=== PATIENT | male | born 1990 | race Caucasian/White ===

== ENCOUNTER 2022-06-12 15:49 | Inpatient (IN) | payer MEDICAID ==
[~2022-06-12] VITALS: Ht 175.3 cm; Wt 103.4 kg
[2022-06-12] MEDS ORDERED: SODIUM CHLORIDE 0.9% 1,000 ML IV ONE (16:30)
[2022-06-12] MEDS ORDERED: LORAZEPAM 2MG/ML CPJ IV ONE ×2 (16:30→19:30)
[2022-06-12] MEDS ORDERED: LORAZEPAM 2MG/ML CPJ IV NR (19:30)
[2022-06-12 20:23] LABS: BASOPHILS % 1.1 % (0.0-2.0); EOSINOPHILS % 0.1 % (0.0-5.0); HEMATOCRIT. 46.2 % (42.0-52.0); HEMOGLOBIN. 16.5 g/dL (14.0-18.0); LYMPHOCYTES % 36.9 % (20.0-50.0); MEAN CORPUSCULAR HEMOGLOBIN 34.2 pg (28.0-32.0); MEAN CORPUSCULAR VOLUME 95.8 fL (80.0-94.0); MEAN PLATELET VOLUME 7.7 fl (7.4-10.4); NEUTROPHILS % 54.9 % (40.0-76.0); PLATELET 381 x1000/uL (130-400); RED BLOOD CELL COUNT 4.82 mill/uL (4.7-6.1); RED CELL DISTRIBUTION WIDTH 15.3 % (11.6-14.6)
[2022-06-12 20:25] LABS: CHLORIDE 101 mEq/L (98-107)
[2022-06-12 20:36] LABS: ETHANOL BLOOD 258 mg/dL
[2022-06-13] MEDS ORDERED: ONDANSETRON HCL 4MG/2ML INJ IV PRN (09:45)
[2022-06-13] MEDS ORDERED: FOLIC ACID 1 MG, THIAMINE HCL 100 MG, MVI, ADULT NO.1 10 ML in DEXTROSE 5% WATER 1,000 ML IV SCH ×4 (10:30)
[2022-06-13 12:00] VITALS: BP 126/77
[2022-06-13 12:47] VITALS: BP 126/77
[2022-06-13] MEDS: ACETAMINOPHEN 325MG TABLET PO PRN ×2 (13:41→17:32)
[2022-06-13] MEDS: CHLORDIAZEPOXIDE 25MG CAPSULE PO SCH ×2 (13:41→21:42)
[2022-06-13] MEDS: LEVETIRACETAM 500MG TABLET PO SCH ×2 (13:52→20:21)
[2022-06-13 16:00] VITALS: BP 130/90
[2022-06-13 20:00] VITALS: BP 144/91
[2022-06-13] MEDS: LORAZEPAM 2MG/ML CPJ IV PRN (20:22)
[2022-06-14] VITALS: BP 121/86
[2022-06-14 04:00] VITALS: BP 124/86
[2022-06-14] MEDS: CHLORDIAZEPOXIDE 25MG CAPSULE PO SCH ×3 (05:08→21:24)
[2022-06-14] MEDS: LORAZEPAM 2MG/ML CPJ IV PRN ×3 (05:12→22:49)
[2022-06-14 05:54] LABS: CHLORIDE 99 mEq/L (98-107)
[2022-06-14 06:01] LABS: PHOSPHORUS 4.7 mg/dL (2.5-4.9)
[2022-06-14 08:12] VITALS: BP 128/86
[2022-06-14] MEDS: LEVETIRACETAM 500MG TABLET PO SCH ×2 (09:00→21:24)
[2022-06-14] MEDS: ACETAMINOPHEN 325MG TABLET PO PRN ×2 (09:07→21:24)
[2022-06-14 11:21] LABS: BASOPHILS % 0.9 % (0.0-2.0); EOSINOPHILS % 1.5 % (0.0-5.0); HEMATOCRIT. 43.6 % (42.0-52.0); HEMOGLOBIN. 15.2 g/dL (14.0-18.0); MEAN CORPUSCULAR HEMOGLOBIN 34.1 pg (28.0-32.0); MONOCYTES % 8.2 % (2.0-8.0); NEUTROPHILS % 64.4 % (40.0-76.0); PLATELET 291 x1000/uL (130-400); RED BLOOD CELL COUNT 4.45 mill/uL (4.7-6.1); RED CELL DISTRIBUTION WIDTH 15.4 % (11.6-14.6)
[2022-06-14 12:36] VITALS: BP 126/89
[2022-06-14] MEDS: PIPERACILLIN/TAZOBACTAM 3.375 G in DEXTROSE 5% WATER 50 ML IV SCH ×2 (15:13→21:24)
[2022-06-14] MEDS: POTASSIUM CHLORIDE 20MEQ TABLET SR PO SCH (15:13)
[2022-06-14 15:47] LABS: CLARITY URINE CLEAR (CLEAR); COLOR URINE ORANGE (YELLOW); KETONES URINE TRACE (NEGATIVE); LEUKOCYTE ESTERASE URINE TRACE (NEGATIVE); NITRITE URINE NEGATIVE (NEGATIVE); OCCULT BLOOD URINE NEGATIVE (NEGATIVE); PH URINE 6.5 (4.5-8.0); PROTEIN URINE NEGATIVE (NEGATIVE); SPECIFIC GRAVITY URINE 1.023 (1.005-1.030)
[2022-06-14 16:00] VITALS: BP 126/93
[2022-06-14 20:00] VITALS: BP 121/87
[2022-06-15] VITALS (7 sets, daily range): BP systolic 121–139; BP diastolic 54–98
[2022-06-15] MEDS: CHLORDIAZEPOXIDE 25MG CAPSULE PO SCH ×3 (05:50→21:37)
[2022-06-15] MEDS: PIPERACILLIN/TAZOBACTAM 3.375 G in DEXTROSE 5% WATER 50 ML IV SCH ×3 (05:50→21:36)
[2022-06-15 06:13] LABS: BASOPHILS % 0.8 % (0.0-2.0); EOSINOPHILS % 2.9 % (0.0-5.0); HEMATOCRIT. 43.8 % (42.0-52.0); HEMOGLOBIN. 15.3 g/dL (14.0-18.0); LYMPHOCYTES % 26.5 % (20.0-50.0); MEAN CORPUSCULAR VOLUME 97.4 fL (80.0-94.0); MEAN PLATELET VOLUME 8.9 fl (7.4-10.4); MONOCYTES % 6.4 % (2.0-8.0); NEUTROPHILS % 63.4 % (40.0-76.0); PLATELET 278 x1000/uL (130-400); RED CELL DISTRIBUTION WIDTH 15.2 % (11.6-14.6)
[2022-06-15 06:28] LABS: CHLORIDE 99 mEq/L (98-107)
[2022-06-15] MEDS: LEVETIRACETAM 500MG TABLET PO SCH ×2 (10:08→21:37)
[2022-06-15] MEDS: POTASSIUM CHLORIDE 20MEQ TABLET SR PO SCH (10:08)
[2022-06-15] MEDS ORDERED: THIA100T88 MT (15:43)
[2022-06-15] MEDS: LORAZEPAM 2MG/ML CPJ IV PRN (21:37)
[2022-06-16] VITALS: BP 118/68
[2022-06-16 04:00] VITALS: BP 116/76
[2022-06-16] MEDS: CHLORDIAZEPOXIDE 25MG CAPSULE PO SCH (06:52)
[2022-06-16] MEDS: PIPERACILLIN/TAZOBACTAM 3.375 G in DEXTROSE 5% WATER 50 ML IV SCH (06:52)
[2022-06-16 08:00] VITALS: BP 131/80
[2022-06-16 08:25] VITALS: BP 131/80
[2022-06-16] MEDS: POTASSIUM CHLORIDE 20MEQ TABLET SR PO SCH (08:36)
[2022-06-16] MEDS: LEVETIRACETAM 500MG TABLET PO SCH (08:36)
[2022-06-16 09:40] VITALS: BP 131/80
[2022-06-16 12:00] VITALS: BP 139/84
== END 2022-06-16 12:53 | disposition home or self-care (01) | DRG 53 ==
LOC: ER 15:49 → MICUSO 23:14 → EDBEDREQTM 23:19 → EDBEDREQ 23:19 → 6WST 06-13 11:33
PROVIDERS: ADMIT Internal Medicine; ATTEND Internal Medicine
DX: G40.89 Other seizures (principal); J96.00 Acute respiratory failure, unspecified whether with hypoxia or hypercapnia; G93.41 Metabolic encephalopathy; F10.229 Alcohol dependence with intoxication, unspecified; F10.239 Alcohol dependence with withdrawal, unspecified; E87.6 Hypokalemia; R74.01 Elevation of levels of liver transaminase levels; Z71.41 Alcohol abuse counseling and surveillance of alcoholic
CPT/HCPCS: 36415; 71045; 80048; 80053; 80320; 81003; 83735; 84100; 85025; 93005; 99291; J2060; J2543; J3411; J3490; J7030; J7060; J7070; G0480

== ENCOUNTER 2023-05-30 23:17 | Inpatient (IN) | payer MEDICAID ==
[~2023-05-30] VITALS: Ht 175.3 cm; Wt 94.3 kg
[~2023-05-30 23:17] MED LIST: THIA100T88 MT
[2023-05-30 23:54] LABS: BASOPHILS % 0.9 % (0.0-2.0); EOSINOPHILS % 0.6 % (0.0-5.0); HEMATOCRIT. 35.5 % (42.0-52.0); HEMOGLOBIN. 12.1 g/dL (14.0-18.0); LYMPHOCYTES % 31.2 % (20.0-50.0); MEAN CORPUSCULAR HEMOGLOBIN 33.5 pg (28.0-32.0); MEAN CORPUSCULAR VOLUME 98.6 fL (80.0-94.0); MEAN PLATELET VOLUME 7.5 fl (7.4-10.4); MONOCYTES % 5.7 % (2.0-8.0); NEUTROPHILS % 61.6 % (40.0-76.0); PLATELET 154 x1000/uL (130-400); RED CELL DISTRIBUTION WIDTH 13.5 % (11.6-14.6); WHITE BLOOD COUNT 5.3 x1000/uL (4.5-11.0)
[2023-05-31] LABS: CHLORIDE 110 mEq/L (98-107); INDEX HEMOLYSI 1 (1-3); INDEX ICTERIC 2 (1-4); INDEX LIPEMIC 1 (1-3); POTASSIUM 3.2 mEq/L (3.5-5.1); SODIUM 143 mEq/L (136-145)
[2023-05-31 00:03] LABS: INR 1.4; PROTHROMBIN TIME 14.7 sec (9.6-11.0)
[2023-05-31 00:12] LABS: ALANINE AMINOTRANSFERASE 78 IU/L (13-61); ALBUMIN 2.8 g/dL (3.4-5.0); ASPARTATE AMINOTRANSFERASE 223 IU/L (15-37); BILIRUBIN TOTAL 2.2 mg/dL (0.1-1.0); CALCIUM 7.8 mg/dL (8.5-10.1); CARBON DIOXIDE 22 mEq/L (21-32); CREATININE 0.7 mg/dL (0.6-1.3); ETHANOL BLOOD 297 mg/dL (<10); GLUCOSE 115 mg/dL (70-105); PROTEIN TOTAL 7.1 g/dL (6.0-8.3); TROPONIN I HIGH SENSITIVITY 18 ng/L (<78); UREA NITROGEN BLOOD 1 mg/dL (7-21)
[2023-05-31] MEDS ORDERED: SODIUM CHL 0.9% + KCL 20MEQ/L 1,000 ML IV SCH (00:15)
[2023-05-31] MEDS ORDERED: FAMOTIDINE 20MG/2ML VIAL IV NR (00:15)
[2023-05-31] MEDS ORDERED: LORAZEPAM 1MG TABLET PO ONE (02:15)
[2023-05-31] MEDS ORDERED: MORPHINE SULFATE 4 MG/ML CPJ (NOT FOR IM USE) IV ONE (02:30)
[2023-05-31 04:00] VITALS: BP 118/80; PULSE 90; RESP 18; TEMP 96.9
[2023-05-31] MEDS ORDERED: ACETAMINOPHEN 325MG TABLET PO PRN (04:45)
[2023-05-31] MEDS ORDERED: ONDANSETRON HCL 4MG/2ML INJ IV PRN (04:45)
[2023-05-31] MEDS ORDERED: NALOXONE HCL 0.4MG/ML VIAL IV PRN (05:00)
[2023-05-31 08:00] VITALS: BP 122/77; PULSE 93; RESP 18; TEMP 97.6
[2023-05-31] MEDS: SODIUM CHLORIDE 0.9% 1,000 ML IV SCH (08:20)
[2023-05-31] MEDS: PANTOPRAZOLE SODIUM 40 MG/VIAL IV SCH (08:20)
[2023-05-31 12:00] VITALS: BP 114/85; PULSE 96; RESP 18; TEMP 97
[2023-05-31] MEDS: HYDROCODONE/ACETAMINOPHEN 5/325MG TABLET PO PRN ×2 (14:36→20:58)
[2023-05-31 16:00] VITALS: BP 112/72; PULSE 62; RESP 18; TEMP 98
[2023-05-31 20:00] VITALS: BP 114/85; PULSE 69; RESP 20; TEMP 97.8
[2023-06-01] VITALS: BP 117/78; PULSE 82; RESP 16; TEMP 97.1
[2023-06-01] MEDS: HYDROCODONE/ACETAMINOPHEN 5/325MG TABLET PO PRN ×2 (01:07→09:08)
[2023-06-01] MEDS: LORAZEPAM 2MG/ML CPJ IV PRN ×2 (01:14→09:58)
[2023-06-01] MEDS: SODIUM CHLORIDE 0.9% 1,000 ML IV SCH (01:19)
[2023-06-01 04:00] VITALS: BP 135/83; PULSE 106; RESP 18; TEMP 97.1
[2023-06-01 07:18] LABS: CHLORIDE 111 mEq/L (98-107); INDEX HEMOLYSI 1 (1-3); INDEX ICTERIC 2 (1-4); INDEX LIPEMIC 1 (1-3); POTASSIUM 3.4 mEq/L (3.5-5.1); SODIUM 142 mEq/L (136-145)
[2023-06-01 07:29] LABS: CALCIUM 6.9 mg/dL (8.5-10.1); CARBON DIOXIDE 23 mEq/L (21-32); CREATININE 0.7 mg/dL (0.6-1.3); GLUCOSE 70 mg/dL (70-105); UREA NITROGEN BLOOD 2 mg/dL (7-21)
[2023-06-01 08:00] VITALS: BP 120/75; PULSE 94; RESP 18; TEMP 97.6
[2023-06-01] MEDS ORDERED: POTASSIUM CHLORIDE 20MEQ TABLET SR PO NR (08:30)
[2023-06-01] MEDS: PANTOPRAZOLE SODIUM 40 MG/VIAL IV SCH (08:45)
[2023-06-01 12:00] VITALS: BP 125/78; PULSE 98; RESP 19; TEMP 97.3
[2023-06-01 16:11] VITALS: BP 127/78; PULSE 98; TEMP 97.3; O2SAT 99
[2023-06-02] MEDS ORDERED: FAMOTIDINE 20MG/2ML VIAL IV SCH (09:00)
== END 2023-06-01 17:00 | disposition home or self-care (01) | DRG 282 ==
LOC: ER 23:17 → 8WST 05-31 02:33
PROVIDERS: ADMIT Internal Medicine; ATTEND Internal Medicine
DX: K85.90 Acute pancreatitis without necrosis or infection, unspecified (principal); E44.0 Moderate protein-calorie malnutrition; K74.60 Unspecified cirrhosis of liver; D64.9 Anemia, unspecified; E87.6 Hypokalemia; I10 Essential (primary) hypertension; J45.909 Unspecified asthma, uncomplicated; R74.01 Elevation of levels of liver transaminase levels; F10.129 Alcohol abuse with intoxication, unspecified; Z68.30 Body mass index [BMI] 30.0-30.9, adult
CPT/HCPCS: 36415; 74176; 80048; 80053; 80320; 84484; 85025; 93005; 99285; C9113; J2060; J2270; J3480; J3490; J7030; G0480

== ENCOUNTER 2023-07-06 17:12 | Inpatient (IN) | payer MEDICAID ==
[~2023-07-06] VITALS: Ht 175.3 cm; Wt 90.7 kg
[2023-07-06 19:35] LABS: BASOPHILS % 0.8 % (0.0-2.0); EOSINOPHILS % 0.8 % (0.0-5.0); HEMATOCRIT. 31.9 % (42.0-52.0); HEMOGLOBIN. 10.8 g/dL (14.0-18.0); LYMPHOCYTES % 12.4 % (20.0-50.0); MEAN CORPUSCULAR HEMOGLOBIN 32.7 pg (28.0-32.0); MEAN CORPUSCULAR HGB CONC 33.9 g/dL (31.0-37.0); MEAN CORPUSCULAR VOLUME 96.3 fL (80.0-94.0); MEAN PLATELET VOLUME 8.6 fl (7.4-10.4); PLATELET 222 x1000/uL (130-400); RED BLOOD CELL COUNT 3.31 mill/uL (4.7-6.1); WHITE BLOOD COUNT 12.5 x1000/uL (4.5-11.0)
[2023-07-06 19:37] LABS: CHLORIDE 105 mEq/L (98-107); INDEX HEMOLYSI 1 (1-3); INDEX ICTERIC 3 (1-4); INDEX LIPEMIC 1 (1-3); POTASSIUM 3.7 mEq/L (3.5-5.1); SODIUM 138 mEq/L (136-145)
[2023-07-06 19:49] LABS: ALANINE AMINOTRANSFERASE 134 IU/L (13-61); ALBUMIN 2.6 g/dL (3.4-5.0); ASPARTATE AMINOTRANSFERASE 206 IU/L (15-37); BILIRUBIN TOTAL 4.6 mg/dL (0.1-1.0); CALCIUM 7.8 mg/dL (8.5-10.1); CARBON DIOXIDE 25 mEq/L (21-32); CREATININE 0.7 mg/dL (0.6-1.3); GLUCOSE 112 mg/dL (70-105); PROTEIN TOTAL 7.7 g/dL (6.0-8.3); TROPONIN I HIGH SENSITIVITY 8 ng/L (<78); UREA NITROGEN BLOOD 4 mg/dL (7-21)
[2023-07-06 19:58] LABS: ETHANOL BLOOD 326 mg/dL (<10)
[2023-07-06] MEDS ORDERED: FAMOTIDINE 20MG/2ML VIAL IV ONE ×2 (21:00→22:43)
[2023-07-06 22:19] LABS: TROPONIN I HIGH SENSITIVITY 8 ng/L (<78)
[2023-07-07] MEDS ORDERED: IPRATROPIUM/ALBUTEROL 0.5-3(2.5)MG/3ML NEB HHN PRN (01:15)
[2023-07-07] MEDS ORDERED: ONDANSETRON HCL 4MG/2ML INJ IV PRN (01:15)
[2023-07-07] MEDS ORDERED: MAGNESIUM/ALUMINUM HYDROXIDE/SIMETHICONE 30ML UDC PO PRN (01:15)
[2023-07-07] MEDS ORDERED: DOCUSATE SODIUM 100MG CAPSULE PO PRN (01:15)
[2023-07-07] MEDS ORDERED: GUAIFENESIN 200MG/10ML SUGAR FREE UDC PO PRN (01:15)
[2023-07-07] MEDS ORDERED: ACETAMINOPHEN 325MG TABLET PO PRN (01:15)
[2023-07-07] MEDS ORDERED: CLONIDINE 0.1MG TABLET PO PRN (01:15)
[2023-07-07] MEDS ORDERED: MULT-1318 PO (02:37)
[2023-07-07] MEDS ORDERED: FURO40TA5 PO (02:37)
[2023-07-07] MEDS ORDERED: PRED10TA PO (02:37)
[2023-07-07] MEDS ORDERED: FOLI-43 PO (02:37)
[2023-07-07] MEDS ORDERED: GABA-532 PO (02:37)
[2023-07-07] MEDS ORDERED: LEVE500T19 PO (02:37)
[2023-07-07] MEDS ORDERED: ACET325T52 PO (02:37)
[2023-07-07] MEDS ORDERED: LIDO28.35 TP (02:37)
[2023-07-07] MEDS ORDERED: LACT10SO3 PO (02:37)
[2023-07-07] MEDS ORDERED: SPIR25TA6 PO (02:37)
[2023-07-07] MEDS ORDERED: HYDR-3735 PO (02:37)
[2023-07-07] MEDS ORDERED: PANT40TA51 PO (02:37)
[2023-07-07] MEDS ORDERED: RIFA550T PO (02:37)
[2023-07-07] MEDS: ACETAMINOPHEN 325MG TABLET PO PRN (03:29)
[2023-07-07 03:30] VITALS: BP 124/78; PULSE 99; RESP 17; TEMP 98.6
[2023-07-07] MEDS ORDERED: [UNRECOGNIZED DRUG - REMARK] IV ONE ×4 (03:30)
[2023-07-07 03:48] LABS: INDEX HEMOLYSI 1 (1-3)
[2023-07-07 03:51] LABS: AMMONIA 84 uMol/L (<32)
[2023-07-07] MEDS ORDERED: MVI, ADULT NO.1 10 ML, THIAMINE HCL 100 MG, FOLIC ACID 1 MG in DEXT 5%/0.45% NACL 1000M... IV ONE ×4 (03:58)
[2023-07-07 04:30] LABS: FOLIC ACID (FOLATE) SERUM 6.5 ng/mL (>5.38)
[2023-07-07] MEDS: LORAZEPAM 2MG/ML CPJ IV PRN ×3 (04:38→17:45)
[2023-07-07 06:22] LABS: BASOPHILS % 0.5 % (0.0-2.0); EOSINOPHILS % 0.9 % (0.0-5.0); HEMATOCRIT. 26.8 % (42.0-52.0); HEMOGLOBIN. 9.4 g/dL (14.0-18.0); LYMPHOCYTES % 13.5 % (20.0-50.0); MEAN CORPUSCULAR HEMOGLOBIN 33.3 pg (28.0-32.0); MEAN CORPUSCULAR VOLUME 95.3 fL (80.0-94.0); MEAN PLATELET VOLUME 8.6 fl (7.4-10.4); NEUTROPHILS % 77.1 % (40.0-76.0); PLATELET 197 x1000/uL (130-400); RED BLOOD CELL COUNT 2.81 mill/uL (4.7-6.1); RED CELL DISTRIBUTION WIDTH 17.4 % (11.6-14.6); WHITE BLOOD COUNT 9.8 x1000/uL (4.5-11.0)
[2023-07-07 06:27] LABS: INR 1.2; PARTIAL THROMBOPLASTIN TIME 33.8 sec (23.4-31.0); PROTHROMBIN TIME 13.1 sec (9.6-11.0)
[2023-07-07 06:39] LABS: CHLORIDE 107 mEq/L (98-107); INDEX HEMOLYSI 1 (1-3); INDEX ICTERIC 2 (1-4); INDEX LIPEMIC 1 (1-3); POTASSIUM 3.7 mEq/L (3.5-5.1); SODIUM 140 mEq/L (136-145)
[2023-07-07 06:54] LABS: ALANINE AMINOTRANSFERASE 110 IU/L (13-61); ALBUMIN 2.2 g/dL (3.4-5.0); ASPARTATE AMINOTRANSFERASE 185 IU/L (15-37); BILIRUBIN DIRECT 2.9 mg/dL (0.0-0.2); BILIRUBIN TOTAL 3.9 mg/dL (0.1-1.0); CALCIUM 7.3 mg/dL (8.5-10.1); CARBON DIOXIDE 27 mEq/L (21-32); CHOLESTEROL 164 mg/dL (<200); CREATININE 0.6 mg/dL (0.6-1.3); GLUCOSE 92 mg/dL (70-105); HDL CHOLESTEROL 27 mg/dL (40-59); LDL CHOLESTEROL 132 mg/dL (5-100); PROTEIN TOTAL 6.6 g/dL (6.0-8.3); TRIGLYCERIDE 123 mg/dL (0-150); TROPONIN I HIGH SENSITIVITY 10 ng/L (<78); UREA NITROGEN BLOOD 5 mg/dL (7-21)
[2023-07-07] MEDS: LACTULOSE 20G/30ML UDC PO SCH ×3 (07:01→21:45)
[2023-07-07 08:00] VITALS: PULSE 100; RESP 14; TEMP 99
[2023-07-07 08:09] LABS: CLARITY URINE CLEAR (CLEAR); COLOR URINE DARK YELLOW (YELLOW); GLUCOSE URINE NEGATIVE (NEGATIVE); KETONES URINE NEGATIVE (NEGATIVE); LEUKOCYTE ESTERASE URINE NEGATIVE (NEGATIVE); NITRITE URINE NEGATIVE (NEGATIVE); OCCULT BLOOD URINE NEGATIVE (NEGATIVE); PROTEIN URINE NEGATIVE (NEGATIVE); SPECIFIC GRAVITY URINE 1.017 (1.005-1.030)
[2023-07-07] MEDS ORDERED: PANTOPRAZOLE SODIUM 40 MG/VIAL IV SCH (09:00)
[2023-07-07] MEDS ORDERED: FUROSEMIDE 40MG/4ML VIAL IVP SCH (09:00)
[2023-07-07 09:29] LABS: *AMPHETAMINES SCREEN URINE NEGATIVE (NEGATIVE); *BARBITURATES SCREEN URINE NEGATIVE (NEGATIVE); *BENZODIAZEPINES SCREEN URINE NEGATIVE (NEGATIVE); *COCAINE SCREEN URINE NEGATIVE (NEGATIVE); CANNABINOID URINE SCREEN NEGATIVE (NEGATIVE); ECSTASY MDMA SCREEN URINE NEGATIVE (NEGATIVE); METHADONE URINE SCREEN NEGATIVE (NEGATIVE); OPIATES URINE SCREEN NEGATIVE (NEGATIVE); PHENCYCLIDINE URINE SCREEN NEGATIVE (NEGATIVE)
[2023-07-07 10:01] LABS: INDEX HEMOLYSI 2 (1-3)
[2023-07-07 10:10] LABS: LACTATE DEHYDROGENASE 416 IU/L (100-240); NT PRO B-TYPE NATRIURETIC PEP 315 pg/mL (5-125)
[2023-07-07] MEDS: SPIRONOLACTONE 25MG TABLET PO SCH ×2 (11:32→17:45)
[2023-07-07] MEDS: RIFAXIMIN 550 MG TABLET PO SCH ×2 (11:32→17:44)
[2023-07-07] MEDS: LEVETIRACETAM 500MG TABLET PO SCH ×2 (11:33→17:45)
[2023-07-07] MEDS: FUROSEMIDE 40MG TABLET PO SCH ×2 (11:33→17:45)
[2023-07-07 12:00] VITALS: PULSE 115; RESP 16; TEMP 98.6
[2023-07-07 16:00] VITALS: PULSE 107; RESP 15; TEMP 99
[2023-07-07 20:00] VITALS: BP 122/78; PULSE 102; RESP 19; TEMP 99
[2023-07-07 21:45] LABS: TROPONIN I HIGH SENSITIVITY 8 ng/L (<78)
[2023-07-07] MEDS: CHLORDIAZEPOXIDE 25MG CAPSULE PO SCH (21:45)
[2023-07-07] MEDS: PANTOPRAZOLE SODIUM 40 MG/VIAL IV SCH (21:45)
[2023-07-08] VITALS: BP 126/74; PULSE 103; RESP 16; TEMP 101.1
[2023-07-08] MEDS: LORAZEPAM 2MG/ML CPJ IV PRN ×3 (01:08→20:52)
[2023-07-08 04:00] VITALS: BP 110/66; PULSE 80; RESP 14; TEMP 97.9
[2023-07-08 04:54] LABS: INDEX HEMOLYSI 1 (1-3)
[2023-07-08 04:56] LABS: AMMONIA 54 uMol/L (<32)
[2023-07-08] MEDS: CHLORDIAZEPOXIDE 25MG CAPSULE PO SCH ×3 (05:39→20:52)
[2023-07-08] MEDS: LACTULOSE 20G/30ML UDC PO SCH ×3 (05:39→20:52)
[2023-07-08 06:56] LABS: BASOPHILS % 0.4 % (0.0-2.0); EOSINOPHILS % 0.5 % (0.0-5.0); HEMATOCRIT. 29.3 % (42.0-52.0); HEMOGLOBIN. 10.1 g/dL (14.0-18.0); LYMPHOCYTES % 11.4 % (20.0-50.0); MEAN CORPUSCULAR HEMOGLOBIN 32.7 pg (28.0-32.0); MEAN CORPUSCULAR HGB CONC 34.3 g/dL (31.0-37.0); MEAN CORPUSCULAR VOLUME 95.2 fL (80.0-94.0); MEAN PLATELET VOLUME 9.9 fl (7.4-10.4); MONOCYTES % 10.6 % (2.0-8.0); NEUTROPHILS % 77.1 % (40.0-76.0); PLATELET 187 x1000/uL (130-400); RED BLOOD CELL COUNT 3.08 mill/uL (4.7-6.1); RED CELL DISTRIBUTION WIDTH 17.8 % (11.6-14.6); WHITE BLOOD COUNT 12.2 x1000/uL (4.5-11.0)
[2023-07-08 06:59] LABS: INR 1.2; PROTHROMBIN TIME 13.1 sec (9.6-11.0)
[2023-07-08 07:46] LABS: CHLORIDE 102 mEq/L (98-107); INDEX HEMOLYSI 1 (1-3); INDEX ICTERIC 3 (1-4); INDEX LIPEMIC 1 (1-3); POTASSIUM 3.4 mEq/L (3.5-5.1); SODIUM 136 mEq/L (136-145)
[2023-07-08 08:00] VITALS: BP 110/66; PULSE 94; RESP 22; TEMP 98
[2023-07-08 08:09] LABS: ALANINE AMINOTRANSFERASE 107 IU/L (13-61); ALBUMIN 2.5 g/dL (3.4-5.0); ASPARTATE AMINOTRANSFERASE 180 IU/L (15-37); BILIRUBIN DIRECT 3.7 mg/dL (0.0-0.2); BILIRUBIN TOTAL 5.4 mg/dL (0.1-1.0); CALCIUM 8.3 mg/dL (8.5-10.1); CREATININE 0.9 mg/dL (0.6-1.3); GLUCOSE 75 mg/dL (70-105); IRON 78 ug/dL (50-175); TOTAL IRON BINDING CAPACITY 184 ug/dL (250-450); UREA NITROGEN BLOOD 5 mg/dL (7-21)
[2023-07-08] MEDS ORDERED: POTASSIUM CHLORIDE 20MEQ TABLET SR PO NR (08:30)
[2023-07-08] MEDS: PANTOPRAZOLE SODIUM 40 MG/VIAL IV SCH ×2 (09:20→20:52)
[2023-07-08] MEDS: CEFTRIAXONE 2 G in DEXTROSE 5% WATER 50 ML IV SCH (09:20)
[2023-07-08] MEDS: SPIRONOLACTONE 25MG TABLET PO SCH ×2 (09:21→16:10)
[2023-07-08] MEDS: FOLIC ACID 1MG TABLET PO SCH (09:21)
[2023-07-08] MEDS: ACETAMINOPHEN 325MG TABLET PO PRN ×2 (09:21→19:11)
[2023-07-08] MEDS: FUROSEMIDE 40MG TABLET PO SCH ×2 (09:21→16:08)
[2023-07-08] MEDS: LEVETIRACETAM 500MG TABLET PO SCH ×2 (09:21→16:08)
[2023-07-08] MEDS: THIAMINE HCL 100MG TABLET PO SCH (09:22)
[2023-07-08] MEDS: RIFAXIMIN 550 MG TABLET PO SCH ×2 (09:22→16:08)
[2023-07-08 12:00] VITALS: BP 110/66; PULSE 94; RESP 14; TEMP 98.6
[2023-07-08 12:33] LABS: CARBON DIOXIDE 27 mEq/L (21-32)
[2023-07-08 16:00] VITALS: BP 110/66; PULSE 113; RESP 24; TEMP 99
[2023-07-08 16:39] LABS: FERRITIN 176 ng/mL (22-322)
[2023-07-08 16:51] LABS: HEPATITIS B SURFACE ANTIGEN NEGATIVE
[2023-07-08 16:59] LABS: HEPATITIS C VIR.AB 0.08 INDEXVAL (0.00-0.80)
[2023-07-08 17:00] LABS: HEPATITIS B CORE AB IGM NEGATIVE
[2023-07-08 17:20] LABS: HEPATITIS A AB IGM NEGATIVE (NEGATIVE)
[2023-07-08 20:00] VITALS: BP 117/76; PULSE 108; RESP 23; TEMP 98.7
[2023-07-09] VITALS: BP 120/78; PULSE 114; RESP 20; TEMP 98.7
[2023-07-09] MEDS: LORAZEPAM 2MG/ML CPJ IV PRN ×5 (02:53→22:07)
[2023-07-09 04:00] VITALS: BP 119/73; PULSE 94; RESP 17; TEMP 98.7
[2023-07-09] MEDS: LACTULOSE 20G/30ML UDC PO SCH ×3 (05:57→22:07)
[2023-07-09] MEDS: CHLORDIAZEPOXIDE 25MG CAPSULE PO SCH (05:58)
[2023-07-09 06:27] LABS: BASOPHILS % 0.7 % (0.0-2.0); EOSINOPHILS % 1.1 % (0.0-5.0); HEMATOCRIT. 30.3 % (42.0-52.0); HEMOGLOBIN. 10.4 g/dL (14.0-18.0); LYMPHOCYTES % 11.6 % (20.0-50.0); MEAN CORPUSCULAR HEMOGLOBIN 32.6 pg (28.0-32.0); MEAN CORPUSCULAR HGB CONC 34.3 g/dL (31.0-37.0); MEAN CORPUSCULAR VOLUME 95.3 fL (80.0-94.0); MEAN PLATELET VOLUME 9.1 fl (7.4-10.4); MONOCYTES % 7.8 % (2.0-8.0); NEUTROPHILS % 78.8 % (40.0-76.0); PLATELET 199 x1000/uL (130-400); RED BLOOD CELL COUNT 3.18 mill/uL (4.7-6.1); RED CELL DISTRIBUTION WIDTH 17.7 % (11.6-14.6); WHITE BLOOD COUNT 12.2 x1000/uL (4.5-11.0)
[2023-07-09 06:51] LABS: AMMONIA 67 uMol/L (<32)
[2023-07-09 07:37] LABS: CHLORIDE 100 mEq/L (98-107); INDEX HEMOLYSI 1 (1-3); INDEX ICTERIC 3 (1-4); INDEX LIPEMIC 1 (1-3); POTASSIUM 3.5 mEq/L (3.5-5.1); SODIUM 134 mEq/L (136-145)
[2023-07-09 07:45] LABS: ALANINE AMINOTRANSFERASE 94 IU/L (13-61); ALBUMIN 2.4 g/dL (3.4-5.0); ASPARTATE AMINOTRANSFERASE 169 IU/L (15-37); BILIRUBIN DIRECT 4.5 mg/dL (0.0-0.2); BILIRUBIN TOTAL 6.6 mg/dL (0.1-1.0); CALCIUM 8.3 mg/dL (8.5-10.1); CARBON DIOXIDE 28 mEq/L (21-32); CREATININE 0.8 mg/dL (0.6-1.3); GLUCOSE 81 mg/dL (70-105); PROTEIN TOTAL 7.2 g/dL (6.0-8.3); UREA NITROGEN BLOOD 9 mg/dL (7-21)
[2023-07-09 08:00] VITALS: BP 124/64; PULSE 94; RESP 18; TEMP 98.3
[2023-07-09] MEDS: PANTOPRAZOLE SODIUM 40 MG/VIAL IV SCH ×2 (09:22→22:07)
[2023-07-09] MEDS: CEFTRIAXONE 2 G in DEXTROSE 5% WATER 50 ML IV SCH (09:22)
[2023-07-09] MEDS: THIAMINE HCL 100MG TABLET PO SCH (09:23)
[2023-07-09] MEDS: ACETAMINOPHEN 325MG TABLET PO PRN ×2 (09:23→23:48)
[2023-07-09] MEDS: SPIRONOLACTONE 25MG TABLET PO SCH ×2 (09:23→17:10)
[2023-07-09] MEDS: RIFAXIMIN 550 MG TABLET PO SCH ×2 (09:23→17:10)
[2023-07-09] MEDS: FOLIC ACID 1MG TABLET PO SCH (09:24)
[2023-07-09] MEDS: FUROSEMIDE 40MG TABLET PO SCH ×2 (09:24→17:10)
[2023-07-09] MEDS: LEVETIRACETAM 500MG TABLET PO SCH ×2 (09:24→17:10)
[2023-07-09 12:00] VITALS: BP 126/64; PULSE 96; RESP 19; TEMP 98.5
[2023-07-09] MEDS: SODIUM CHLORIDE 0.45% 1,000 ML IV SCH (15:45)
[2023-07-09 16:00] VITALS: BP 119/67; PULSE 106; RESP 17; TEMP 98.9
[2023-07-09 17:06] LABS: INDEX HEMOLYSI 2 (1-3)
[2023-07-09 17:13] LABS: CREATINE KINASE 30 IU/L (39-308)
[2023-07-09 20:00] VITALS: BP 117/69; PULSE 109; RESP 25; TEMP 98.6
[2023-07-10] VITALS: BP 116/75; PULSE 110; RESP 21; TEMP 98.3
[2023-07-10] MEDS ORDERED: NON FORMULARY PATIENT HOME MED XX SCH (00:30)
[2023-07-10] MEDS: MELATONIN 3MG TABLET PO PRN ×2 (00:48→20:56)
[2023-07-10] MEDS: LORAZEPAM 2MG/ML CPJ IV PRN ×4 (03:13→20:37)
[2023-07-10 03:37] VITALS: BP 115/58; PULSE 96; RESP 20; TEMP 99.3
[2023-07-10] MEDS: LACTULOSE 20G/30ML UDC PO SCH ×3 (06:27→22:00)
[2023-07-10] MEDS: SODIUM CHLORIDE 0.45% 1,000 ML IV SCH ×3 (06:28→20:57)
[2023-07-10 06:29] LABS: INDEX HEMOLYSI 1 (1-3)
[2023-07-10 06:31] LABS: AMMONIA 64 uMol/L (<32)
[2023-07-10 07:29] LABS: BASOPHILS % 0.6 % (0.0-2.0); HEMATOCRIT. 30.1 % (42.0-52.0); HEMOGLOBIN. 10.2 g/dL (14.0-18.0); LYMPHOCYTES % 12.9 % (20.0-50.0); MEAN CORPUSCULAR HEMOGLOBIN 32.3 pg (28.0-32.0); MEAN CORPUSCULAR HGB CONC 33.9 g/dL (31.0-37.0); MEAN CORPUSCULAR VOLUME 95.2 fL (80.0-94.0); MEAN PLATELET VOLUME 10.1 fl (7.4-10.4); MONOCYTES % 8.3 % (2.0-8.0); NEUTROPHILS % 77.2 % (40.0-76.0); PLATELET 188 x1000/uL (130-400); RED BLOOD CELL COUNT 3.17 mill/uL (4.7-6.1); WHITE BLOOD COUNT 13.7 x1000/uL (4.5-11.0)
[2023-07-10 07:38] LABS: INR 1.4; PROTHROMBIN TIME 14.4 sec (9.6-11.0)
[2023-07-10 08:00] VITALS: BP 112/60; PULSE 94; RESP 18; TEMP 98
[2023-07-10 08:14] LABS: CHLORIDE 98 mEq/L (98-107); INDEX HEMOLYSI 1 (1-3); INDEX ICTERIC 3 (1-4); INDEX LIPEMIC 1 (1-3); POTASSIUM 3.5 mEq/L (3.5-5.1); SODIUM 133 mEq/L (136-145)
[2023-07-10 08:23] LABS: ALANINE AMINOTRANSFERASE 82 IU/L (13-61); ALBUMIN 2.4 g/dL (3.4-5.0); ASPARTATE AMINOTRANSFERASE 136 IU/L (15-37); BILIRUBIN DIRECT 4.3 mg/dL (0.0-0.2); BILIRUBIN TOTAL 6.5 mg/dL (0.1-1.0); CALCIUM 8.3 mg/dL (8.5-10.1); CARBON DIOXIDE 28 mEq/L (21-32); CREATININE 0.9 mg/dL (0.6-1.3); GLUCOSE 87 mg/dL (70-105); PROTEIN TOTAL 7.2 g/dL (6.0-8.3); UREA NITROGEN BLOOD 13 mg/dL (7-21)
[2023-07-10] MEDS: PANTOPRAZOLE SODIUM 40 MG/VIAL IV SCH ×2 (09:45→20:37)
[2023-07-10] MEDS: LEVETIRACETAM 500MG TABLET PO SCH ×2 (09:45→18:04)
[2023-07-10] MEDS: SPIRONOLACTONE 25MG TABLET PO SCH ×2 (09:45→18:04)
[2023-07-10] MEDS: FUROSEMIDE 40MG TABLET PO SCH ×2 (09:45→18:04)
[2023-07-10] MEDS: FOLIC ACID 1MG TABLET PO SCH (09:45)
[2023-07-10] MEDS: THIAMINE HCL 100MG TABLET PO SCH (09:45)
[2023-07-10] MEDS: RIFAXIMIN 550 MG TABLET PO SCH ×2 (10:27→18:04)
[2023-07-10 11:29] VITALS: BP 118/65; PULSE 91; RESP 18; TEMP 98
[2023-07-10 22:33] VITALS: BP 120/66; PULSE 96; RESP 20; TEMP 98.3
[2023-07-11] MEDS: LORAZEPAM 2MG/ML CPJ IV PRN ×5 (01:32→20:25)
[2023-07-11] MEDS: ACETAMINOPHEN 325MG TABLET PO PRN (02:18)
[2023-07-11 04:00] VITALS: BP 124/62; PULSE 95; RESP 20; TEMP 98.8
[2023-07-11] MEDS: SODIUM CHLORIDE 0.45% 1,000 ML IV SCH (06:23)
[2023-07-11] MEDS: LACTULOSE 20G/30ML UDC PO SCH ×3 (06:23→22:10)
[2023-07-11 07:09] LABS: INDEX HEMOLYSI 1 (1-3)
[2023-07-11 07:12] LABS: AMMONIA 64 uMol/L (<32)
[2023-07-11 08:16] LABS: INDEX HEMOLYSI 1 (1-3); INDEX ICTERIC 3 (1-4); INDEX LIPEMIC 1 (1-3)
[2023-07-11 08:21] LABS: ALBUMIN 2.4 g/dL (3.4-5.0); CHLORIDE 101 mEq/L (98-107); POTASSIUM 3.6 mEq/L (3.5-5.1); SODIUM 134 mEq/L (136-145)
[2023-07-11 08:25] LABS: ALANINE AMINOTRANSFERASE 69 IU/L (13-61); ASPARTATE AMINOTRANSFERASE 131 IU/L (15-37); BILIRUBIN TOTAL 5.6 mg/dL (0.1-1.0); CALCIUM 8.1 mg/dL (8.5-10.1); CARBON DIOXIDE 23 mEq/L (21-32); CREATININE 0.7 mg/dL (0.6-1.3); GLUCOSE 92 mg/dL (70-105); PROTEIN TOTAL 7.1 g/dL (6.0-8.3); UREA NITROGEN BLOOD 12 mg/dL (7-21)
[2023-07-11 08:38] LABS: HEMOGLOBIN 10.3 g/dL (14.0-18.0); MEAN CORPUSCULAR HEMOGLOBIN 32.1 pg (28.0-32.0); MEAN CORPUSCULAR HGB CONC 33.4 g/dL (31.0-37.0); MEAN CORPUSCULAR VOLUME 96.1 fL (80.0-94.0); PLATELET 205 x1000/uL (130-400); RED BLOOD CELL COUNT 3.22 mill/uL (4.7-6.1); RED CELL DISTRIBUTION WIDTH 18.6 % (11.6-14.6); WHITE BLOOD COUNT 12.5 x1000/uL (4.5-11.0)
[2023-07-11] MEDS: FOLIC ACID 1MG TABLET PO SCH (09:07)
[2023-07-11] MEDS: PANTOPRAZOLE SODIUM 40 MG/VIAL IV SCH ×2 (09:07→20:25)
[2023-07-11] MEDS: LEVETIRACETAM 500MG TABLET PO SCH ×2 (09:07→17:33)
[2023-07-11] MEDS: THIAMINE HCL 100MG TABLET PO SCH (09:07)
[2023-07-11] MEDS: SPIRONOLACTONE 25MG TABLET PO SCH ×2 (09:07→17:33)
[2023-07-11] MEDS: FUROSEMIDE 40MG TABLET PO SCH ×2 (09:07→17:33)
[2023-07-11] MEDS: RIFAXIMIN 550 MG TABLET PO SCH ×2 (09:07→17:33)
[2023-07-11 12:00] VITALS: BP 111/58; PULSE 87; RESP 18; TEMP 98.1
[2023-07-11 16:00] VITALS: BP 121/58; PULSE 68; RESP 18; TEMP 98.3
[2023-07-11 20:00] VITALS: BP 118/63; PULSE 93; RESP 16; TEMP 98.1
[2023-07-11] MEDS: MELATONIN 3MG TABLET PO PRN (22:34)
[2023-07-12] VITALS: PULSE 93; RESP 17; TEMP 97.7
[2023-07-12] MEDS: LORAZEPAM 2MG/ML CPJ IV PRN ×4 (00:52→13:27)
[2023-07-12 04:00] VITALS: BP 119/56; PULSE 89; RESP 17; TEMP 98.6
[2023-07-12] MEDS: LACTULOSE 20G/30ML UDC PO SCH ×2 (05:40→13:26)
[2023-07-12 07:03] LABS: ALBUMIN 2.5 g/dL (3.4-5.0); AMMONIA 62 uMol/L (<32); BILIRUBIN DIRECT 3.8 mg/dL (0.0-0.2); BILIRUBIN TOTAL 5.5 mg/dL (0.1-1.0); PROTEIN TOTAL 7.2 g/dL (6.0-8.3)
[2023-07-12 08:48] VITALS: BP 88/47; PULSE 98; RESP 18; TEMP 101
[2023-07-12] MEDS: PANTOPRAZOLE SODIUM 40 MG/VIAL IV SCH (09:02)
[2023-07-12] MEDS: THIAMINE HCL 100MG TABLET PO SCH (09:02)
[2023-07-12] MEDS: FOLIC ACID 1MG TABLET PO SCH (09:02)
[2023-07-12] MEDS: LEVETIRACETAM 500MG TABLET PO SCH (09:02)
[2023-07-12] MEDS: RIFAXIMIN 550 MG TABLET PO SCH (09:02)
[2023-07-12 09:07] LABS: PHOSPHORUS 2.8 mg/dL (2.5-4.9)
[2023-07-12] MEDS: SPIRONOLACTONE 25MG TABLET PO SCH (09:15)
[2023-07-12] MEDS: FUROSEMIDE 40MG TABLET PO SCH (09:15)
[2023-07-12] MEDS: SODIUM CHLORIDE 0.45% 1,000 ML IV SCH (10:25)
[2023-07-12] MEDS ORDERED: CHLO5CAP3 PO (11:14)
[2023-07-12] MEDS ORDERED: MELA3TAB40 PO (11:14)
[2023-07-12 12:23] VITALS: BP 111/63; PULSE 87; RESP 18; TEMP 100
[2023-07-12 13:31] VITALS: BP 111/63; PULSE 18; TEMP 100; O2SAT 99
[2023-07-12] MEDS ORDERED: CHLORDIAZEPOXIDE 5 MG CAPSULE PO SCH (14:00)
== END 2023-07-12 14:40 | disposition home or self-care (01) | DRG 280 ==
LOC: ER 17:12 → MICUSO 22:49 → 3WST 07-07 01:55 → 6WST 07-10 02:42
PROVIDERS: ADMIT Hospitalist; ATTEND Hospitalist
DX: K70.30 Alcoholic cirrhosis of liver without ascites (principal); E43 Unspecified severe protein-calorie malnutrition; D63.8 Anemia in other chronic diseases classified elsewhere; I50.9 Heart failure, unspecified; E87.1 Hypo-osmolality and hyponatremia; I11.0 Hypertensive heart disease with heart failure; D53.9 Nutritional anemia, unspecified; D72.829 Elevated white blood cell count, unspecified; F10.20 Alcohol dependence, uncomplicated; F17.210 Nicotine dependence, cigarettes, uncomplicated; R56.9 Unspecified convulsions; E78.5 Hyperlipidemia, unspecified; Y90.8 Blood alcohol level of 240 mg/100 ml or more; K82.8 Other specified diseases of gallbladder; J45.909 Unspecified asthma, uncomplicated; K76.9 Liver disease, unspecified; E80.6 Other disorders of bilirubin metabolism; R15.9 Full incontinence of feces; R16.1 Splenomegaly, not elsewhere classified; Z82.49 Family history of ischemic heart disease and other diseases of the circulatory system; Z90.49 Acquired absence of other specified parts of digestive tract; Z68.29 Body mass index [BMI] 29.0-29.9, adult
CPT/HCPCS: 36415; 71045; 76700; 80048; 80053; 80061; 80076; 80305; 80320; 81003; 82140; 82248; 82270; 82550; 82607; 82728; 82746; 83540; 83550; 83605; 83615; 83735; 83880; 84100; 84145; 84484; 85025; 85027; 85044; 86705; 86709; 86803; 87340; 93005; 93306; 93970; 96375; 99285; C9113; J0696; J2060; J3411; J3490; J7060; G0480

== ENCOUNTER 2023-08-20 19:50 | Emergency (ER) | payer MEDICAID ==
[~2023-08-20] VITALS: Ht 170.2 cm; Wt 84.0 kg
[~2023-08-20 19:50] MED LIST changes: +CHLO5CAP3 PO; +FOLI-43 PO; +FURO40TA5 PO; +GABA-532 PO; +HYDR-3735 PO; +LACT10SO3 PO; +LEVE500T19 PO; +LIDO28.35 TP; +MELA3TAB40 PO; +MULT-1318 PO; +PANT40TA51 PO; +RIFA550T PO; +SPIR25TA6 PO
[2023-08-20 19:54] VITALS: O2SAT 97
[2023-08-20 20:26] LABS: BASOPHILS % 0.5 % (0.0-2.0); EOSINOPHILS % 0.5 % (0.0-5.0); HEMATOCRIT. 35.1 % (42.0-52.0); HEMOGLOBIN. 11.9 g/dL (14.0-18.0); LYMPHOCYTES % 17.7 % (20.0-50.0); MEAN CORPUSCULAR HEMOGLOBIN 33.1 pg (28.0-32.0); MEAN CORPUSCULAR HGB CONC 33.7 g/dL (31.0-37.0); MEAN PLATELET VOLUME 8.4 fl (7.4-10.4); MONOCYTES % 11.5 % (2.0-8.0); NEUTROPHILS % 69.8 % (40.0-76.0); PLATELET 126 x1000/uL (130-400); RED BLOOD CELL COUNT 3.59 mill/uL (4.7-6.1); WHITE BLOOD COUNT 5.7 x1000/uL (4.5-11.0)
[2023-08-20 20:45] LABS: ALANINE AMINOTRANSFERASE 45 IU/L (10-49); ALBUMIN 3.7 g/dL (3.2-4.8); ASPARTATE AMINOTRANSFERASE 159 IU/L (<34); BILIRUBIN TOTAL 3.6 mg/dL (0.1-1.0); CALCIUM 8.9 mg/dL (8.7-10.4); CARBON DIOXIDE 28 mEq/L (21-32); CHLORIDE 97 mEq/L (98-107); GLUCOSE 98 mg/dL (70-105); PROTEIN TOTAL 8.6 g/dL (6.0-8.3); SODIUM 137 mEq/L (136-145); UREA NITROGEN BLOOD 6 mg/dL (9-23)
[2023-08-20 20:52] LABS: ETHANOL BLOOD 437 mg/dL (<10)
[2023-08-20] MEDS ORDERED: POTASSIUM CHLORIDE 20MEQ TABLET SR PO ONE (21:00)
[2023-08-20] MEDS ORDERED: ACETAMINOPHEN 325MG TABLET PO ONE (21:45)
[2023-08-20 22:00] VITALS: BP 108/73; PULSE 92; RESP 11; TEMP 98.9
== END 2023-08-20 21:59 | disposition home or self-care (01) ==
LOC: ER 19:50
DX: F10.129 Alcohol abuse with intoxication, unspecified (principal); J45.909 Unspecified asthma, uncomplicated; I10 Essential (primary) hypertension; Z86.59 Personal history of other mental and behavioral disorders; Z79.899 Other long term (current) drug therapy; Y90.8 Blood alcohol level of 240 mg/100 ml or more
CPT/HCPCS: 36415; 80053; 80320; 85025; 99283; G0480